=== PATIENT | female | born 1995 | race Two or more races ===

== ENCOUNTER 2017-06-14 09:31 | Emergency (ER) | payer MEDICAID ==
[2017-06-14 10:23] LABS: BASOPHILS 0.1 % (0-2); EOSINOPHILS 0.6 % (0-7); HEMATOCRIT 39.3 % (36.0-48.0); HEMOGLOBIN 13.5 g/dL (12-16); IMMATURE GRANULOCYTES 0.7 % (0-5); LYMPHOCYTES 12.3 % (15-50); MCHC 34.4 g/dL (31.0-37.0); MCV 90.3 fL (80.0-100.0); MEAN PLATELET VOLUME 8.7 fL (7.4-10.4); MONOCYTES 5.5 % (2-11); NEUTROPHILS 80.8 % (40-80); PLATELET COUNT 196 10x3/uL (130-400); RBC 4.35 10x6/uL (4.00-5.40); RDW 12.8 % (11.5-14.5); WBC 9.7 10x3/uL (4.8-10.8)
[2017-06-14 10:38] LABS: ALBUMIN 3.2 g/dL (3.4-5.0); ALKALINE PHOSPHATASE 118 U/L (46-116); ALT (SGPT) 34 U/L (10-68); CALC OSMOLALITY 274 mosm/kg (275-300); CALCIUM 9.4 mg/dL (8.5-10.1); CARBON DIOXIDE 27.1 mmol/L (21.0-32.0); CHLORIDE - SERUM 104 mmol/L (98-107); CREATININE - SERUM 0.5 mg/dL (0.6-1.3); GLUCOSE 73 mg/dL (74-106); POTASSIUM - SERUM 3.9 mmol/L (3.5-5.1); PROTEIN - SERUM 7.3 g/dL (6.4-8.2); SODIUM 139 mmol/L (136-145); UREA NITROGEN 7 mg/dL (7-18); eGFR NON AFRICAN AMERICAN > 90 mL/min (90-120)
[2017-06-14 10:49] LABS: AMORPHOUS SEDIMENT >1+ /lpf (NONE SEEN); APPEARANCE SLT CLOUDY (CLEAR); BACTERIA MODERATE /hpf (NONE SEEN); BILIRUBIN NEGATIVE (NEGATIVE); COLOR YELLOW (YELLOW); EPITHELIAL CELLS 0-5 /hpf (0-5); GLUCOSE NEGATIVE (NEGATIVE); KETONE NEGATIVE (NEGATIVE); LEUKOCYTE ESTERASE TRACE (NEGATIVE); MUCUS <1+ /lpf (NONE SEEN); NITRITE NEGATIVE (NEGATIVE); PROTEIN NEGATIVE (NEGATIVE); WHITE CELLS - URINE OCC /hpf (0-5)
[2017-06-14 11:01] LABS: HCG - QUANTITATIVE (MATERNAL) 42463 mIU/mL
== END 2017-06-14 12:39 | disposition home or self-care (01) ==
LOC: D.ER 09:31
PROVIDERS: Emergency Medicine
DX: R10.32 Left lower quadrant pain (principal); R10.31 Right lower quadrant pain; R11.0 Nausea

== ENCOUNTER → 2017-10-11 21:47 | Outpatient (CLI) | payer MEDICAID ==
[~2017-10-11 21:47] MED LIST: IBUPROFEN800 MG PO; PERCOCET 5-3251 TAB PO; PRENATABS RX TA1 TAB PO
[2017-10-11 22:27] LABS: APPEARANCE HAZY (CLEAR); BILIRUBIN NEGATIVE (NEGATIVE); COLOR YELLOW (YELLOW); GLUCOSE 50 mg/dL (NEGATIVE); KETONE NEGATIVE (NEGATIVE); NITRITE NEGATIVE (NEGATIVE); PROTEIN NEGATIVE (NEGATIVE); UROBILINOGEN NORMAL (NORMAL)
[2017-10-11 22:28] LABS: BACTERIA FEW /hpf (NONE SEEN); EPITHELIAL CELLS 0-5 /hpf (0-5); RED CELLS - URINE 0-5 /hpf (0-5)
[2017-11-04 21:36] VITALS: BMI 30.2
== END | disposition home or self-care (01) ==
LOC: D.LDO 21:47
PROVIDERS: Obstetrics & Gynecology
DX: O26.893 Other specified pregnancy related conditions, third trimester (principal); Z3A.35 35 weeks gestation of pregnancy; M54.5 Low back pain; M25.559 Pain in unspecified hip; R10.13 Epigastric pain

== ENCOUNTER → 2017-10-21 16:23 | Outpatient (CLI) | payer MEDICAID ==
[2017-10-21 17:04] LABS: APPEARANCE SLT CLOUDY (CLEAR); BILIRUBIN NEGATIVE (NEGATIVE); COLOR YELLOW (YELLOW); GLUCOSE NEGATIVE (NEGATIVE); KETONE NEGATIVE (NEGATIVE); NITRITE NEGATIVE (NEGATIVE); PROTEIN NEGATIVE (NEGATIVE); SPECIFIC GRAVITY 1.015 (1.005-1.020); UROBILINOGEN NORMAL (NORMAL)
[2017-10-21 17:07] LABS: BACTERIA MODERATE /hpf (NONE SEEN); RED CELLS - URINE 0-5 /hpf (0-5)
[2017-10-21 17:10] LABS: YEAST >1+ WITH HYPHAE /hpf (NONE SEEN)
[2017-10-23 22:33] LABS: PROTEIN - URINE 56.8 mg/dL (0.0-11.9)
[2017-11-04 21:36] VITALS: BMI 30.2
== END | disposition home or self-care (01) ==
LOC: D.LDO 16:23
PROVIDERS: Obstetrics & Gynecology
DX: O26.853 Spotting complicating pregnancy, third trimester (principal); Z3A.36 36 weeks gestation of pregnancy; R60.0 Localized edema

== ENCOUNTER → 2017-10-25 12:15 | Outpatient (CLI) | payer MEDICAID ==
[2017-11-04 21:36] VITALS: BMI 30.2
== END | disposition home or self-care (01) ==
LOC: D.LDO 12:15
DX: Z34.03 Encounter for supervision of normal first pregnancy, third trimester (principal); Z3A.37 37 weeks gestation of pregnancy

== ENCOUNTER 2017-11-04 19:40 | Inpatient (IN) | payer MEDICAID ==
[~2017-11-04] VITALS: Ht 157.5 cm; Wt 74.8 kg
--- NOTE | ~2017-11-04 | OP ---
PATIENT NAME: CHATO COLLINS MEDICAL RECORD: [id number] :[birth year] LOCATION:[id number] ADMISSION DATE:11/04/17 SURGEON: CHAS JIMÉNEZ MD DATE OF OPERATION: 11/07/2017 PREOPERATIVE DIAGNOSES: 1. Preeclampsia at term. 2. Arrest of dilation. POSTDELIVERY DIAGNOSES: 1. Preeclampsia at term. 2. Arrest of dilation. PROCEDURE: Primary low transverse section. SURGEON: Chas Jiménez MD MANAGER QUALITY COMPLIANCE: Heladio Case ANESTHETIC: Spinal. FINDINGS: Viable female infant, vertex presentation, Apgars are 9 and 9, weight 3393 grams. Unremarkable uterus, tubes, and ovaries bilaterally. Caput noted on the infant. SPECIMEN REMOVED: Placenta. SPECIMEN DISPOSITION: Discarded. EBL: 700. FLUIDS: Lactated Ringer's, 1500 cc. URINE OUTPUT: Clear urine, 400 cc. COMPLICATIONS: None. DRAIN: Mace to gravity. INDICATION: The patient is a 22-year-old G1 para 0, at term with hypertension and significant proteinuria. The patient has been induced and cervix was ripened over 24 hours. The patient was started on Pitocin and given artificial rupture of membrane and was further dilated with Mace catheter. The patient did progress to 4 cm to 5 cm, and with adequate uterine contractions, failed to progress further. DESCRIPTION OF PROCEDURE: After informed consent was assured, the patient was taken to the operating room, where anesthetic was obtained without difficulty. The patient was prepped and draped in the usual sterile fashion. Assessment of anesthetic found it to be adequate. An incision was made on the lower abdomen. The abdomen was entered using standard Pfannenstiel technique. The Jasen O ring was inserted and tightened. The bladder blade was inserted and bladder flap developed. Bladder blade was now reinserted and low transverse hysterotomy was performed. Infant was delivered on to the abdomen atraumatically. Infant's cord was doubly clamped and cut and the infant was passed to the attendant. OPERATIVE REPORT [id number] CHATO COLLINS Cord blood sample was obtained and the uterus was expressed using Crede's maneuver. Uterus was exteriorized, cleared of all clot and debris, and then returned to the abdomen. The closure was performed in 2 layers with Vicryl. The initial layer was a running locked stitch and the second layer was an imbrication. Icdjpc-km-loetw stitch was applied in a section that was bleeding in the midline. Pelvis was irrigated and irrigant was removed. The peritoneum and the rectus bellies were reapproximated in the midline. The fascia was now closed with Vicryl in a running fashion. Subcutaneous tissue was inspected. No bleeding vessels were noted. The skin was reapproximated with a subcuticular stitch. Sponge, lap, and needle counts were correct times 2 at the close of this procedure. The patient will remain on prophylactic antibiotics for just under 24 hours. TRANSINT:[id number] Voice Confirmation ID: [id number] DOCUMENT ID: [id number] CHAS JIMÉNEZ MD at 2045 CC: [id number] DICTATION DATE: 11/07/17312 MASTER CONTROL OPERATOR: 11/07/17 1114 ADM IN [facility] [address] [place] [address]
--- NOTE | ~2017-11-04 | DS ---
PATIENT:CHATO COLLINS :89 MEDICAL RECORD: [id number] DISCHARGE SUMMARY ADMISSION DATE: 11/04/17 DISCHARGE DATE: 11/09/17 DATE OF ADMISSION: 11/04/2017. DATE OF DISCHARGE: 11/09/2017. ADMISSION DIAGNOSIS: Preeclampsia at term. DISCHARGE DIAGNOSES: 1. delivered at term. 2. Preeclampsia. 3. Arrest of dilation. ATTENDING: Dr. Jiménez. PROCEDURES PERFORMED: 1. Induction of labor. 2. . HISTORY OF PRESENT ILLNESS AND INDICATION FOR HOSPITALIZATION: See the H&P in the chart. SUMMARY OF HOSPITALIZATION: The patient was admitted and began cervical ripening. The patient began on Pitocin hospital day #2 and eventually was ruptured and arrested in dilation. In the course, the patient was difficult to motivate, did not use ICS. The patient did have ABG performed showing a low PaO2 and with elevated A-a gradient received a spiral CT of the chest, which was negative. The patient's pulmonary toilet did increase and at the time of discharge, she has no respiratory complaints, has adequate pain control. The patient has normal sats. DISCHARGE MEDICATIONS: Will include Percocet and Motrin. FOLLOWUP: The patient has been given standard , postoperative precautions and she will follow up in 2 weeks at [facility]. TRANSINT:[id number] Voice Confirmation ID: [id number] DOCUMENT ID: [id number] SILVIA JIMÉNEZ MD at 0830 CC: [id number] DICTATION DATE: 11/09/17 1650 ENDOCRINOLOGIST: 11/10/17 1153 DIS IN 11/09/17 [facility] [address] [place] [address]
[~2017-11-04 19:40] MED LIST changes: -IBUPROFEN800 MG PO; -PERCOCET 5-3251 TAB PO
[2017-11-04 21:05] LABS: HEMOGLOBIN 9.4 g/dL (12-16); MCH 24.5 pg (26.0-34.0); MCHC 31.3 g/dL (31.0-37.0); MCV 78.1 fL (80.0-100.0); MEAN PLATELET VOLUME 9.5 fL (7.4-10.4); RBC 3.84 10x6/uL (4.00-5.40); WBC 8.4 10x3/uL (4.8-10.8)
[2017-11-04 21:16] LABS: APPEARANCE HAZY (CLEAR); BILIRUBIN NEGATIVE (NEGATIVE); COLOR DK YELLOW (YELLOW); GLUCOSE NEGATIVE (NEGATIVE); KETONE NEGATIVE (NEGATIVE); NITRITE NEGATIVE (NEGATIVE); PROTEIN 2+ mg/dL (NEGATIVE); SPECIFIC GRAVITY 1.015 (1.005-1.020); UROBILINOGEN NORMAL (NORMAL)
[2017-11-04 21:20] LABS: BACTERIA MODERATE /hpf (NONE SEEN); RED CELLS - URINE 0-5 /hpf (0-5)
[2017-11-04 21:22] LABS: YEAST >1+ WITH HYPHAE /hpf (NONE SEEN)
[2017-11-04 21:36] VITALS: BP 139/79; Ht 157.5 cm; Wt 74.8 kg
[2017-11-05 18:17] LABS: BASOPHILS 0.1 % (0-2); EOSINOPHILS 0.6 % (0-7); HEMATOCRIT 31.3 % (36.0-48.0); HEMOGLOBIN 9.6 g/dL (12-16); IMMATURE GRANULOCYTES 1.2 % (0-5); LYMPHOCYTES 17.4 % (15-50); MCH 24.1 pg (26.0-34.0); MCHC 30.7 g/dL (31.0-37.0); MCV 78.4 fL (80.0-100.0); MEAN PLATELET VOLUME 9.5 fL (7.4-10.4); MONOCYTES 5.9 % (2-11); NEUTROPHILS 74.8 % (40-80); PLATELET COUNT 186 10x3/uL (130-400); RBC 3.99 10x6/uL (4.00-5.40); RDW 15.9 % (11.5-14.5); WBC 8.5 10x3/uL (4.8-10.8)
[2017-11-05 19:08] LABS: ALBUMIN 1.8 g/dL (3.4-5.0); ALKALINE PHOSPHATASE 265 U/L (46-116); ALT (SGPT) 17 U/L (10-68); BILIRUBIN - TOTAL 0.17 mg/dL (0.2-1.3); CALC OSMOLALITY 274 mosm/kg (275-300); CHLORIDE - SERUM 104 mmol/L (98-107); CREATININE - SERUM 0.5 mg/dL (0.6-1.3); GLUCOSE 79 mg/dL (74-106); PROTEIN - SERUM 5.1 g/dL (6.4-8.2); SODIUM 138 mmol/L (136-145); UREA NITROGEN 13 mg/dL (7-18); URIC ACID 3.9 mg/dL (2.6-7.2); eGFR NON AFRICAN AMERICAN > 90 mL/min (90-120)
[2017-11-06 05:14] LABS: RAPID PLASMA REAGIN Non Reactive (Non Reactive)
[2017-11-07] VITALS (11 sets, daily range): BP systolic 138–161; BP diastolic 62–93
[2017-11-08 03:00] VITALS: BP 132/74
[2017-11-08 03:17] LABS: BASOPHILS 0.1 % (0-2); EOSINOPHILS 0.4 % (0-7); HEMATOCRIT 25.6 % (36.0-48.0); HEMOGLOBIN 7.9 g/dL (12-16); IMMATURE GRANULOCYTES 1.2 % (0-5); LYMPHOCYTES 11.8 % (15-50); MCH 24.2 pg (26.0-34.0); MCHC 30.9 g/dL (31.0-37.0); MCV 78.3 fL (80.0-100.0); MONOCYTES 7.6 % (2-11); NEUTROPHILS 78.9 % (40-80); PLATELET COUNT 188 10x3/uL (130-400); RBC 3.27 10x6/uL (4.00-5.40); RDW 16.7 % (11.5-14.5); WBC 14.7 10x3/uL (4.8-10.8)
[2017-11-08 08:40] VITALS: BP 132/74
[2017-11-08 15:05] VITALS: BP 159/96
[2017-11-08 19:59] VITALS: BP 158/94
[2017-11-09 08:01] VITALS: BP 153/85
[2017-11-09 16:01] VITALS: BP 148/82
[2017-11-09] MEDS ORDERED: PERCOCET 5-3251 TAB PO (17:44)
[2017-11-09] MEDS ORDERED: IBUPROFEN800 MG PO (17:44)
== END 2017-11-09 18:45 | disposition home or self-care (01) | DRG 765 ==
LOC: D.LDO 19:40 → D.LD 19:59
PROVIDERS: Obstetrics & Gynecology
PROC: 3E0P7VZ Introduction of Hormone into Female Reproductive, Via Natural or Artificial Opening (ICD-10-PCS; 2017-11-05)
PROC: 10907ZC Drainage of Amniotic Fluid, Therapeutic from Products of Conception, Via Natural or Artificial Opening (ICD-10-PCS; 2017-11-05)
PROC: 3E033VJ Introduction of Other Hormone into Peripheral Vein, Percutaneous Approach (ICD-10-PCS; 2017-11-05)
PROC: 10D00Z1 Extraction of Products of Conception, Low, Open Approach (ICD-10-PCS; principal; 2017-11-07 07:00)
DX: O14.94 Unspecified pre-eclampsia, complicating childbirth (principal); J98.11 Atelectasis; Z3A.38 38 weeks gestation of pregnancy; Z37.0 Single live birth; O62.1 Secondary uterine inertia; O75.89 Other specified complications of labor and delivery